=== PATIENT | male | born 1970 | race Caucasian/White ===

== ENCOUNTER 2024-10-26 08:52 | Outpatient (REF) | payer OTHER, SELFPAY ==
[2024-10-26 13:34] LABS: Estimated Average Glucose 114 mg/dL; Hemoglobin A1c % 5.6 % (<6.0); Total Hemoglobin (HGBA1C) 4122.8291 umol/L
[2024-10-26 13:35] LABS: Rheumatoid Factor < 13.0 IU/mL (<15.0)
[2024-10-26 13:47] LABS: PSA,Total (Free>4and<10) 1.68 ng/mL (0.00-4.00)
[2024-10-26 14:06] LABS: Folate 9.5 ng/mL (> or = 4.0); Vitamin B12 438 pg/mL (200-900)
[2024-10-26 14:08] LABS: Erythrocyte Sedimentation Rate 2 MM/HR (0-15)
[2024-10-26 14:10] LABS: Alanine Aminotransferase 59 U/L (0-40); Albumin Level 4.5 g/dL (3.5-5.0); Alkaline Phosphatase 48 U/L (39-117); Anion Gap 12 (12-20); Aspartate Amino Transferase 34 U/L (5-37); Bilirubin Direct 0.2 mg/dL (0.0-0.5); Bilirubin Total 0.7 mg/dL (0.0-1.0); Blood Urea Nitrogen 13 mg/dL (9-16); C Reactive Protein 0.16 mg/dL (< or = 0.50); Calcium 9.3 mg/dL (8.4-10.2); Carbon Dioxide 27 mmol/L (22-29); Chloride 107 mmol/L (96-108); Cholesterol 226 mg/dL (<200); Estimated Glomerular Filt Rate > 60; Glucose Fasting 115 mg/dL (60-99); HDL Cholesterol 53 mg/dL (>40); LDL Cholesterol Calculated 151 mg/dL (<100); Magnesium 2.1 mg/dL (1.6-2.6); Potassium 4.3 mmol/L (3.3-5.1); Sodium 142 mmol/L (135-145); Total Protein 7.8 g/dL (6.5-8.0); Triglycerides 112 mg/dL (<150)
[2024-10-26 14:16] LABS: Parathyroid Hormone Intact 71.3 pg/mL (8.7-77.1)
[2024-10-26 14:19] LABS: TSH reflex Free T4 1.31 uIU/mL (0.32-4.0)
[2024-10-28 22:09] LABS: Zinc 72 mcg/dL (60-130)
[2024-10-29 14:33] LABS: Anti Nuclear Antibody Screen NEGATIVE (NEGATIVE)
[2024-11-01 12:23] LABS: Testosterone, Total 342 ng/dL (250-1100)
[2024-11-01 14:34] LABS: Vitamin B1 7 nmol/L (8-30)
== END 2024-10-26 08:53 | disposition home or self-care (01) ==
LOC: HO.HMGCLDS 08:52
PROVIDERS: PCP Internal Medicine; Visit Provider Physician Assistant Medical
DX: Z76.89 Persons encountering health services in other specified circumstances (principal); M25.50 Pain in unspecified joint; R53.83 Other fatigue; G89.29 Other chronic pain; M54.9 Dorsalgia, unspecified; Z00.00 Encounter for general adult medical examination without abnormal findings
CPT/HCPCS: 36415; 80053; 80061; 80076; 82248; 82306; 82550; 82607; 82746; 83036; 83735; 83970; 84153; 84403; 84425; 84443; 84630; 85652; 86038; 86140; 86431; 96127; 99202

== ENCOUNTER 2024-10-26 08:52 | Outpatient (AMB) | payer OTHER, SELFPAY ==
--- NOTE | 2024-10-26 08:56 | A.OFFPC_ITS ---
Vital Signs 10/26/24 09:00 Height 6 ft 1 in Weight 222 lb BMI 29.3 BP 126/80 Respiration 14 Pulse 80 Pulse Source Pulse Oximeter Temp 97.1 F Temp Source Temporal Artery Scan Pulse Oximetry (%) 97 Oxygen Delivery Method Room Air Intake Visit Reasons: New Patient Engineering Assistant Required: No Accompanied by: Self / Same As Patient Allergies No Known Allergies Allergy (Verified 10/26/24 10:11) Medication List - Last Reconciled 10/26/24 by Johanna Ayala PA-C No Known Home Meds Tobacco use date assessed: 10/26/24 Dental Screening Dental Screen Date: 10/26/24 Did you have a dental visit in the last 12 months?: No Did you have a dental problem in the last 6 months where you did not have access to dental care?: No [facility] Medical History (Updated 10/26/24 @ 10:15 by Johanna Ayala PA-C) Fatigue Colon cancer screening Chronic back pain Multiple joint pain Encounter to establish care with new doctor Surgical History (Updated 10/26/24 @ 10:16 by Johanna Ayala PA-C) History of right knee surgery History of appendectomy Family History Father Heart attack Mother Cancer Son Diabetes Social History Housing: House Alcohol intake: current Alcohol intake frequency: a few times a week Alcohol type: beer Patient Tobacco Use Status: Former Tobacco user service: No Current occupational status: employed Cognitive needs: No Hearing needs: No Vision needs: No Questionnaire PHQ-9 Over the last 2 weeks, how often have you been bothered by any of the following problems? 1. Little interest or pleasure in doing things: not at all 2. Feeling down, depressed, or hopeless: not at all 3. Trouble falling or staying asleep, or sleeping too much: not at all 4. Feeling tired or having little energy: not at all 5. Poor appetite or overeating: not at all 6. Feeling bad about yourself - or that you are a failure or have let yourself or your family down: not at all 7. Trouble concentrating on things, such as reading the newspaper or watching television: not at all 8. Moving or speaking so slowly that other people could have noticed. Or the opposite - being so fidgety or restless that you have been moving around a lot more than usual: not at all 9. Thoughts that you would be better off or of hurting yourself in some way: not at all Total score: 0 Depression Screening Interpretation: Negative Depression Screening Done: Yes 63692 - PHQ-9 Billing: Yes Source: Developed by Drs. Bam Amin, Anushka Cedeno, Nahun Arnold and colleagues, with an educational jim from [employer]. Thrive Questionnaire Date Thrive assessed: 10/26/24 I am a: Patient What is your living situation today?: I have a steady place to live Within the past 12 months, did the food you bought not last and you didn't have the money to get more?: Never true Within the past 12 months, did you worry whether your food would run out before you got money to buy more?: Never true Do you have trouble paying for medicines?: No Do you have trouble getting transportation to medical appointments?: No Do you have trouble paying your heating and electricity bill?: No Do you have trouble taking care of your child, family member or friend?: No Do you have trouble with day-to-day activities such as bathing, preparing meals, shopping, managing finances, etc.?: No Are you currently unemployed and looking for a job?: No Are you interested in more education?: No THRIVE Score: 0 AUDIT C Alcohol Use Questionnaire (AUDIT-C) 1. How often do you have a drink containing alcohol?: 2-3 times a week 2. How many drinks containing alcohol do you have on a typical day when you are drinking?: 1 or 2 3. How often do you have six or more drinks on one occasion?: Never Total Score: 3 Score Reviewed/Action Taken: No PHILOMENA-7 AMB Questionnaire PHILOMENA-7 Date PHILOMENA - 7 assessed: 10/26/24 Feeling nervous, anxious, or on edge: 0 = Not at all Not being able to stop or control worryin = Not at all Worrying too much about different things: 0 = Not at all Trouble relaxin = Not at all Being so restless that it is hard to sit still: 0 = Not at all Becoming easily annoyed or irritable: 0 = Not at all Feeling afraid as if something awful might happen: 0 = Not at all Total PHILOMENA-7 score (0-4 normal; 5-9 mild; 10-14 moderate; 15-21 severe): 0 Source: Developed by Drs. Bam Amin, Anushka Cedeno, Nahun Arnold and colleagues, with an educational jim from [employer]. PHILOMENA-7 Assessment Billing PHILOMENA-7 Assessment Tool: PHILOMENA-7 Assessment 34773 Physical exam (Primary Care) Vital Signs: Last Vital Signs Temp 97.1 F 10/26/24 09:00 Pulse 80 10/26/24 09:00 Resp 14 10/26/24 09:00 BP 126/80 10/26/24 09:00 Pulse Ox 97 10/26/24 09:00 Oxygen Delivery Method Room Air 10/26/24 09:00 Care Plan Goal for BP management: <130/80 BMI result Body Mass Index 29.3 BMI Assessment/Plan discussion: High BMI High, discussed plan: lifestyle, weight reduction, dietary, physical activity and alcohol moderation Tobacco/Smoking Status: Tobacco use Status Tobacco use date assessed 10/26/24 10/26/24 09:06 Patient Tobacco Use Status Former Tobacco user 10/26/24 09:06 PHQ-9: PHQ-9 Score PHQ-9: Total score 0 10/26/24 09:06 Depression Screening Interpretation: Negative Thrive Assessment: Date of Thrive Assessment Date Thrive assessed 10/26/24 10/26/24 09:06 Coding Level of Care Code New Pt Level 4 (51000) Complex EM visit Add On G2211 Diagnoses Encounter to establish care with new doctor Z76.89 Multiple joint pain M25.50 Fatigue R53.83 Chronic back pain M54.9; G89.29 Colon cancer screening Z12.11 Additional Codes PHQ-9 - 85659 - PHQ-9 Billing: Yes ([id number]) PHILOMENA-7 Assessment Billing - PHILOMENA-7 Assessment Tool: PHILOMENA-7 Assessment 96973 ([id number]) Assessment & Plan Assessment & Plan (1) Encounter to establish care with new doctor: Code(s): Z76.89 - Persons encountering health services in other specified circumstances Category: Medical (2) Multiple joint pain: Code(s): M25.50 - Pain in unspecified joint Category: Medical Plan: Patient reports multiple joint pain. Requesting for labs to be obtained due to he has not had labs in over 2 years since his appendectomy at [facility]. He has not seen a PCP in many years. He believes he might be low and his testosterone level or a vitamin level. He denies taking ijgx-flk-lrizyqn supplements at this time other than Motrin for his multiple joint pain/chronic back pain. Condition is chronic and stable continue to monitor. (3) Fatigue: Code(s): R53.83 - Other fatigue Category: Medical Plan: Patient with chronic fatigue. Will obtain labs and additional labs per patient request. Condition is chronic and stable continue to monitor. (4) Chronic back pain: Code(s): M54.9 - Dorsalgia, unspecified; G89.29 - Other chronic pain Category: Medical Plan: Patient was offered muscle relaxers although reports he has Motrin and muscle relaxers at home. He does not want to see the orthopedist at this time. He is not interested in cortisone injections. Condition is chronic and stable continue to monitor. (5) Colon cancer screening: Code(s): Z12.11 - Encounter for screening for malignant neoplasm of colon Category: Medical Plan: Patient denies family history. Denies any unintentional weight loss. Reports normal stools. Will refer to GI for colon cancer screening. Plan Plan Patient was informed and verbally consented to the use of an ambient scribe for clinic note documentation during this visit. 1. Chondromalacia Patella Management includes continued use of ibuprofen for pain relief and activity adjustments as necessary. 2. Fatigue A thorough series of laboratory tests, including CBC, CMP, CRP, A1c, TSH, and testosterone levels, are planned to identify potential causes of the patient's fatigue. 3. Post-Appendectomy Status No current concerns associated with prior appendectomy are identified. 4. Periodic Muscle Pain Continued ibuprofen usage for muscle pain control and occasional muscle relaxants if needed. An orthopedic consultation is suggested if symptoms do not improve. Discussion Notes During this visit, we discussed the ongoing issue of fatigue the patient is experiencing, with potential contributing factors including a physically demanding work environment. We decided to pursue comprehensive blood work to assess for anemia, diabetes, thyroid disorders, vitamin deficiencies, and hormone levels due to this persistent fatigue. The patient expressed concern about potential low testosterone levels, and this will be evaluated with the scheduled tests. Furthermore, we had a conversation regarding options for managing periodic muscle pain due to past spinal compression injuries and daily physical job demands. The patient expressed reluctance towards steroid injections and alternative therapies such as RPR but agreed to further evaluation if his pain becomes unmanageable. We talked about the need for routine screenings and checkups given his age, and I recommended a colonoscopy to ensure early detection of any gastrointestinal issues. Finally, I suggested he return for follow-up appointments in six months to reassess his conditions and adjust the management plan as necessary. Orders: Orders Complete Blood Count Auto Diff Today Z00.00 - Encounter for general adult medi caroline examination without abnormal findings Comprehensive [place]. Panel Fast Today Z00.00 - Encounter for general adult medical examination without abnormal findings Hemoglobin A1c Today Z00.00 - Encounter for general adult medical examination without abnormal findings Lipid Panel Today Z00.00 - Encounter for general adult medical examination without abnormal findings Magnesium Today Z00.00 - Encounter for general adult medical examination without abnormal findings TSH reflex Free T4 Today Z00.00 - Encounter for general adult medical examination without abnormal findings Vitamin B12 and Folate Today Z00.00 - Encounter for general adult medical examination without abnormal findings Testosterone, Total Today Z00.00 - Encounter for general adult medical examination without abnormal findings Rheumatoid Factor Today G89.29 - Other chronic pain, M25.50 - Pain in unspecified joint, M54.9 - Dorsalgia, unspecified Creatine Kinase Total Today Z00.00 - Encounter for general adult medical examination without abnormal findings C Reactive Protein Today Z00.00 - Encounter for general adult medical examination without abnormal findings Liver Panel Today Z00.00 - Encounter for general adult medical examination without abnormal findings PSA,Total (Free>4and<10) Today Z00.00 - Encounter for general adult medical examination without abnormal findings Vitamin B1 Today Z00.00 - Encounter for general adult medical examination without abnormal findings Vitamin D 25-OH Total Today Z00.00 - Encounter for general adult medical examination without abnormal findings Parathyroid Hormone Intact Today Z00.00 - Encounter for general adult medical examination without abnormal findings Zinc Today Z00.00 - Encounter for general adult medical examination without abnormal findings ERVIN Reflex Titer and Pattern Today G89.29 - Other chronic pain, M25.50 - Pain in unspecified joint, M54.9 - Dorsalgia, unspecified Erythrocyte Sedimentation Rate Today Z00.00 - Encounter for general adult medical examination without abnormal findings Referrals Gastroenterology Referral C18.9 - Malignant neoplasm of colon, unspecified Patient Instructions: Patient Instructions - Undergo all specified blood work, ensuring fasting for accurate results. - Return for follow-up in six months or earlier if symptoms worsen or change. - Continue using ibuprofen for pain management as needed. - Consider muscle relaxants if muscle spasm pain increases. - Schedule a colonoscopy as recommended for cancer screening. - Sign up for the patient portal for access to results and communication. - Contact the office with any questions or concerns about your care plan. Scribe Plan - Not visible on output: History of Present Illness The patient is a 54-year-old male presenting for his initial appointment to establish care. Reports he has not seen a PCP in many years. Today he is presenting with generalized fatigue and concerns regarding decreased energy levels, impacting his ability to engage in regular activities, such as exercise. He notes a physically demanding occupation which may exacerbate his fatigue. His medical history includes chondromalacia patella diagnosed during childhood and an appendectomy performed two years ago. He manages intermittent muscle pain and stiffness using fwjs-nax-osudoze ibuprofen, particularly related to lower back issues. Social History - Occupationally involved in physical labor. - Previously active lifestyle with regular gym attendance that has declined due to fatigue. - Reports consuming ibuprofen for chronic pain management. - Denies any current substance use apart from ibuprofen. - Maintains a diet but no specifics disclosed. Review of Systems - Musculoskeletal: Reports muscle pain, particularly in the lower back area, possibly related to his physically demanding job. - General: Denies unintentional weight loss. Physical Exam Appearance: Alert. Oriented X3. No acute distress. Head: Normal external exam. Normocephalic. Atraumatic. Eyes: Pupils are equal, round, and reactive to light. Extraocular movements intact. Conjunctiva and sclera normal. Eyelids normal. Ears: External auditory canal normal. Tympanic membranes normal. Throat: Pharynx normal. Uvula midline. Moist mucous membranes. Neck: Normal inspection. Neck supple. Full range of motion. No adenopathy. Thyroid Normal. No meningeal signs. No neck mass noted. Cardiovascular: Normal heart rate and rhythm. Heart sound normal. No murmurs noted. Pulses normal throughout. Respiratory: No respiratory distress. Painless inspiration. Breath sounds normal. No wheezes/rales/rhonchi noted. Chest nontender. No accessory muscle usage noted or decreased air movement noted. Abdomen: Soft and nontender. Bowel sounds normal in all 4 quadrants. No distention noted. No organomegaly noted. No visible injury noted. Back: No costovertebral angle tenderness. Full range of motion noted. Reports pain in the lower back, possibly muscle spasm. Skin: Skin warm and dry. Normal skin color. Normal skin turgor. No rashes/lesions/lacerations noted. Extremities: No lower extremity edema. Extremities exhibit normal range of motion. Extremities nontender. Neuro: Oriented X 3. No motor deficit. No sensory deficit. Reflexes normal.
[2024-10-26 09:00] VITALS: BP 126/80; PULSE 80; RESP 14; TEMP 36.2; O2SAT 97; BMI 29.3
== END 2024-10-26 09:29 | disposition home or self-care (01) ==
LOC: HO.HMCSH 08:52
PROVIDERS: PCP Internal Medicine; Visit Provider Physician Assistant Medical
DX: Z76.89 Persons encountering health services in other specified circumstances (principal); M25.50 Pain in unspecified joint; R53.83 Other fatigue; M54.9 Dorsalgia, unspecified; G89.29 Other chronic pain; Z12.11 Encounter for screening for malignant neoplasm of colon

== ENCOUNTER 2024-12-31 09:30 | Outpatient (AMB) | payer OTHER, SELFPAY ==
--- NOTE | 2024-12-31 09:36 | MHC.OFFVIS ---
Vital Signs 12/31/24 09:39 Height 6 ft 1 in Weight 222 lb BMI 29.3 BP 112/73 Blood Pressure Location Lt brachial Position Sitting Pulse 73 Pulse Oximetry (%) 97 Oxygen Delivery Method Room Air Intake Visit Reasons: [place] screening , new pt Intake Note: Patient new consult 1st for pre colonoscopy screening. Patient denies any GI issues for today. Account Development Specialist Required: No Accompanied by: Self / Same As Patient Allergies No Known Allergies Allergy (Verified 12/31/24 09:38) Medication List - Last Reconciled 12/31/24 by Kelsi Campbell CNP atorvastatin 10 mg PO BEDTIME bisacodyl 5 mg PO ONCE 1 day ibuprofen 200 mg PO Q6H PRN polyethylene glycol 3350 (Miralax) 238 grams PO ONCE thiamine HCl (vitamin B1) 100 mg PO DAILY HPI HPI [place] screening , new pt: Details: Patient is a 54-year-old male with PMH of chronic back and knee pain and HLD. Referred by PCP for pre colonoscopy screening. eDvin is here for his first-ever colonoscopy pre-screening. He reports regular bowel movements multiple times throughout the day, with no history of blood in stools, chronic loose stools, or constipation. He denies any pain, nausea, or vomiting during bowel movements. Appetite is generally good, though he does not follow regular meal patterns, often skipping breakfast and lunch, and eating dinner after work. Devin has a past history of heartburn that has been well controlled for months without current symptoms. He reports a history of gallstones discovered incidentally during an appendectomy in 2021, with the last specific symptomatic episode over a year ago, which he managed with [id number]-wuqpglb cranberry gels. He mentions experiencing significant abdominal pain previously, related to dietary indiscretions, but there have been no recent issue Patient denies: fever/chills, dysphasia, unintentional wt loss or ab pain. SOCIAL HISTORY - Diet: Skips breakfast and lunch; eats dinner; coffee with cream and sugar in the morning and one during work hours; occasional donuts - Alcohol Use: Previously drank 2 beers per week, has abstained for the past 4 weeks - Tobacco Use: Quit 15+ years ago - Drug Use: No current use; occasional marijuana use; past history of cocaine use, ceased 12+ years ago - Occupation: surgical scrub technician, involves significant physical activity (climbing ladders, heavy lifting) - family hx as below -denies personal hx of CA -denies significant cardiopulmonary history -tolerated anesthesia in the past without difficulty. PFS Medical History (Updated 12/31/24 @ 11:18 by Kelsi Campbell CNP) Acid reflux Low vitamin B12 level Hypercholesteremia Hyperlipidemia Fatigue Colon cancer screening Chronic back pain Multiple joint pain Encounter to establish care with new doctor Surgical History (Updated 12/31/24 @ 10:06 by Kelsi Campbell CNP) History of right knee surgery History of appendectomy Family History Father Heart attack Mother Cancer Son Diabetes Social History Housing: House Alcohol intake: current Alcohol intake frequency: a few times a week Alcohol type: beer Patient Tobacco Use Status: Former Tobacco user service: No Current occupational status: employed Cognitive needs: No Hearing needs: No Vision needs: No Review of Systems Const Reports as per HPI ENT Reports as per HPI Card Reports as per HPI Resp Reports as per HPI GI Reports as per HPI Reports as per HPI Physical Exam Const General: healthy appearing, no acute distress and well developed Nutritional Appearance: well nourished Orientation/consciousness: patient oriented x3 HEENT Head: Yes normal to inspection, Yes normocephalic and Yes atraumatic Face and sinus: Yes normal facial exam Eyes General: appearance normal, both eyes and all related structures Neck Neck: Yes normal visual inspection Resp Effort & Inspection: normal respiratory effort, able to speak in complete sentences, no tracheal deviation and symmetric chest movement Auscultation: clear to auscultation bilaterally Cardio Jugular venous distension: no JVD Rate: regular rate Rhythm: regular rhythm Heart sounds: S1 normal heart sound present, S2 normal heart sound present, no gallops and no murmurs GI Inspection: Yes normal to inspection and No distended Palpation (GI): Soft to palpation, not firm, nontender and No hepatosplenomegaly present Auscultation: normal bowel sounds Neuro General: patient oriented x3 Gait exam (Neuro): Normal gait present Psych Appearance: grossly normal Mental Status: mental status grossly normal Speech and movement: Normal speech and movement present Affect: normal affect Attitude: cooperative Thought process: Normal thought process present Thought content: Normal thought content present Insight: Good insight present (Psych) Judgement: Good judgement present (Psych) Assessment & Plan Assessment & Plan (1) Colon cancer screening: Code(s): Z12.11 - Encounter for screening for malignant neoplasm of colon Category: Medical Plan: Due index screening colonoscopy. Diagnostic Tests: Prescriptions for laxative tablets and Miralax sent to pharmacy; instructions for Gatorade purchase and clear liquid diet given. Medications: - understands to hold ibuprofen or alike 7 days prior to procedure. - Use Tylenol if needed for pain. Patient educated on procedure preparation, including avoiding certain foods and ensuring clear liquid intake. Advised on necessity for ride post-procedure due to sedation. (2) Acid reflux: Code(s): K21.9 - Gastro-esophageal reflux disease without esophagitis Category: Medical Qualifiers: Esophagitis presence: esophagitis presence not specified Qualified Code(s): K21.9 - Gastro-esophageal reflux disease without esophagitis Plan: Intermittent symptoms with last episode approximately 1 year ago. Discussed obtaining upper endoscopy at time of colonoscopy given this history and chronic NSAID use. He is agreeable to proceeding. Education on GERD prevention : -Advised against heavy meals; encouraged small, frequent meals instead of large ones. - Instructed to remain upright for 2?3 hours after eating. - Advised to avoid late-night meals, spicy foods, caffeine, alcohol, known dietary triggers, and tight-fitting clothing. - Emphasis placed on gradual implementation of lifestyle changes to improve adherence and symptom control. Plan Follow-up after double. Time: I spent a total of 45 minutes on the date of encounter which includes: Preparing to see the patient (reviewed previous documentation, test results and medical history) Performing a medically appropriate exam and/or evaluation Ordering medications, tests, and procedures Documenting clinical information in the health record. Medications: New polyethylene glycol 3350 (Miralax) per colonoscopy prep instructions 238 grams PO ONCE 238 grams 0RF bisacodyl Take four tablets once for 1 day per colonoscopy instructions 5 mg PO ONCE 1 day 4 tabs 0RF Coding Level of Care Code New Pt New Pt Level 5 (46097) Patient Type New Diagnoses Colon cancer screening Z12.11 Gastroesophageal reflux disease, unspecified whether esophagitis present K21.9 Esophagitis presence: esophagitis presence not specified
[2024-12-31 09:39] VITALS: BP 112/73; PULSE 73; O2SAT 97; BMI 29.3
== END 2024-12-31 10:17 | disposition home or self-care (01) ==
LOC: HO.HGI 09:31
PROVIDERS: PCP Internal Medicine; Visit Provider Nurse Practitioner Family
DX: Z01.818 Encounter for other preprocedural examination (principal); Z12.11 Encounter for screening for malignant neoplasm of colon; K21.9 Gastro-esophageal reflux disease without esophagitis
CPT/HCPCS: 99204

== ENCOUNTER → 2024-12-31 09:30 | Outpatient (BNVA) | payer OTHER, SELFPAY | PROVIDERS: PCP Internal Medicine; Visit Provider Nurse Practitioner Family | DX: Z01.818 Encounter for other preprocedural examination (principal); K21.9 Gastro-esophageal reflux disease without esophagitis | CPT/HCPCS: 99202 ==